=== PATIENT | female | born 1990 | race Caucasian/White ===

== ENCOUNTER → 2021-01-08 | Outpatient (CLI) | payer OTHER ==
[~2021-01-08] MED LIST: CIPRO500 MG PO; FLAGYL500MG PO; INTESTINEX1 CA1 PO; Mylicon 125MG PO; PEPCID20 MG PO; ZANTAC150 M3 PO
== END | disposition home or self-care (01) ==
LOC: PRENATAL 08:00
PROVIDERS: ATTEND Obstetrics & Gynecology Maternal & Fetal Medicine
DX: Z36.89 Encounter for other specified antenatal screening (principal); O36.80X2 Pregnancy with inconclusive fetal viability, fetus 2; O30.91 Multiple gestation, unspecified, first trimester; Z3A.12 12 weeks gestation of pregnancy

== ENCOUNTER → 2021-03-11 | Outpatient (CLI) | payer OTHER | END | disposition home or self-care (01) | LOC: PRENATAL 13:00 | PROVIDERS: ATTEND Obstetrics & Gynecology Maternal & Fetal Medicine | DX: O35.0XX2 Maternal care for (suspected) central nervous system malformation in fetus, fetus 2 (principal); O35.3XX2 Maternal care for (suspected) damage to fetus from viral disease in mother, fetus 2; O98.512 Other viral diseases complicating pregnancy, second trimester; O30.92 Multiple gestation, unspecified, second trimester; O44.02 Complete placenta previa NOS or without hemorrhage, second trimester; Z36.89 Encounter for other specified antenatal screening; Z3A.20 20 weeks gestation of pregnancy ==

== ENCOUNTER 2021-05-06 15:26 | Outpatient (CLI) | payer OTHER | END 2021-05-06 17:12 | disposition home or self-care (01) | LOC: PRENATAL 15:26 | PROVIDERS: ATTEND Obstetrics & Gynecology Maternal & Fetal Medicine | DX: O26.843 Uterine size-date discrepancy, third trimester (principal); O30.93 Multiple gestation, unspecified, third trimester; Z36.89 Encounter for other specified antenatal screening; Z3A.28 28 weeks gestation of pregnancy ==

== ENCOUNTER 2022-03-08 07:57 | Emergency (ER) | payer OTHER ==
[~2022-03-08] VITALS: Ht 152.4 cm; Wt 65.8 kg
[2022-03-08] MEDS ORDERED: MACRODANTIN100 M1 PO (14:46)
[2022-03-08] MEDS ORDERED: DERMOCREM TOP (14:46)
== END 2022-03-08 14:53 ==
LOC: ER 07:57
DX: N39.0 Urinary tract infection, site not specified (principal); N83.292 Other ovarian cyst, left side